=== PATIENT | female | born 1970 | race Native Hawaiian/Other Pacific Islander ===

== ENCOUNTER 2021-04-10 15:02 | Emergency (ER) | payer OTHER ==
[~2021-04-10] VITALS: Ht 165.1 cm; Wt 81.6 kg
[2021-04-10 15:34] LABS: PLATELET COUNT 331 K/uL (152-353)
[2021-04-10 15:36] LABS: POTASSIUM 4.3 mmol/L (3.6-5.2); SODIUM 139 mmol/L (136-145)
[2021-04-10 16:38] VITALS: BP 155/84; TEMP 98
== END 2021-04-10 16:39 | disposition home or self-care (01) ==
LOC: ED 15:02
PROVIDERS: Emergency Medicine
DX: R07.89 Other chest pain (principal); F41.8 Other specified anxiety disorders; I10 Essential (primary) hypertension; Z91.14 Patient's other noncompliance with medication regimen; F17.210 Nicotine dependence, cigarettes, uncomplicated
CPT/HCPCS: 80053; 83880; 84484; 85027; 85379; 85610; 85730; 93005; 96374; 96375; 99284; J1885; J2270; J2405

== ENCOUNTER 2021-07-24 14:14 | Emergency (ER) | payer OTHER ==
[~2021-07-24] VITALS: Ht 165.1 cm; Wt 93.0 kg
[2021-07-24 15:23] LABS: PLATELET COUNT 275 K/uL (152-353); POTASSIUM 4.7 mmol/L (3.6-5.2)
[2021-07-24 23:59] LABS: PARTIAL THROMBOPLASTIN TIME 23.9 SECONDS (24.5-33.6)
[2021-07-25 01:00] VITALS: TEMP 100.1
[2021-07-25 09:45] VITALS: BP 118/76
== END 2021-07-25 09:45 | disposition short-term general hospital (02) ==
LOC: ED 14:14
PROVIDERS: Emergency Medicine
DX: M62.82 Rhabdomyolysis (principal); I21.4 Non-ST elevation (NSTEMI) myocardial infarction; L03.221 Cellulitis of neck; Z11.52 Encounter for screening for COVID-19; S00.11XA Contusion of right eyelid and periocular area, initial encounter; S00.531A Contusion of lip, initial encounter; F17.200 Nicotine dependence, unspecified, uncomplicated; W01.198A Fall on same level from slipping, tripping and stumbling with subsequent striking against other object, initial encounter; Y92.238 Other place in hospital as the place of occurrence of the external cause
CPT/HCPCS: 36415; 80048; 80307; 82550; 83605; 83880; 84484; 85007; 85027; 85610; 85730; 87040; 87635; 93005; 96360; 96365; 96366; 99284; J1644; J1956; J2543; J3370; Q9963; U0003